=== PATIENT | female | born 1960 | race Caucasian/White ===

== ENCOUNTER → 2017-02-10 | Outpatient (CLI) | payer MEDICAID | LOC: FIMAGING 11:01 | PROVIDERS: ATTEND Physician Assistant Medical | DX: Z12.31 Encounter for screening mammogram for malignant neoplasm of breast (principal) | CPT/HCPCS: G0202 ==

== ENCOUNTER → 2018-03-09 | Outpatient (CLI) | payer MEDICAID | LOC: FIMAGING 11:09 | PROVIDERS: ATTEND Physician Assistant | DX: Z12.31 Encounter for screening mammogram for malignant neoplasm of breast (principal) ==

== ENCOUNTER → 2018-04-04 | Outpatient (CLI) | payer MEDICAID | LOC: FIMAGING 14:15 | PROVIDERS: ATTEND Physician Assistant | DX: N60.12 Diffuse cystic mastopathy of left breast (principal) ==